=== PATIENT | male | born 1990 | race Caucasian/White ===

== ENCOUNTER 2019-08-30 11:08 | Emergency (ER) | payer OTHER ==
[~2019-08-30] VITALS: Ht 168 cm; Wt 76.0 kg
[~2019-08-30 11:08] MED LIST: HYDR-3870 PO; LEVO500T69 PO; METH4TAB PO; ONDA-42 SL; ORPH100T PO; OXYC-465 PO
[2019-08-30] MEDS ORDERED: NS IV 1000 ML 1,000 ML IV SCH (11:31)
[2019-08-30 12:00] LABS: BASOPHILS # (AUTO) 0.1 10^3/uL (0.0-0.1); BASOPHILS % (AUTO) 1 % (0-10); EOSINOPHILS # (AUTO) 0.2 10^3/uL (0.0-0.3); EOSINOPHILS % (AUTO) 3 % (0-10); HEMATOCRIT 46 % (40-54); HEMOGLOBIN 15.3 G/DL (13.3-17.7); LYMPHOCYTES # (AUTO) 1.5 X 10^3 (1.0-4.0); LYMPHOCYTES % (AUTO) 20 % (12-44); MEAN CORPUSCULAR HEMOGLOBIN 30 PG (25-34); MEAN CORPUSCULAR HGB CONC 33 G/DL (32-36); MEAN CORPUSCULAR VOLUME 91 FL (80-99); MONOCYTES % (AUTO) 13 % (0-12); NEUTROPHILS # (AUTO) 4.9 X 10^3 (1.8-7.8); NEUTROPHILS % (AUTO) 64 % (42-75); PLATELET COUNT 284 10^3/uL (130-400); RED CELL DISTRIBUTION WIDTH 13.6 % (10.0-14.5); WHITE BLOOD COUNT 7.6 10^3/uL (4.3-11.0)
[2019-08-30] MEDS ORDERED: fentaNYL INJECTION 100 MCG/2 ML AMP IVP ONE (12:00)
[2019-08-30] MEDS ORDERED: ONDANSETRON 4 MG/2 ML (SDV) Z0FRAN IVP ONE (12:00)
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
[2019-08-30 12:19] LABS: ALANINE AMINOTRANSFERASE 21 U/L (0-55); ALBUMIN 4.3 GM/DL (3.2-4.5); ALKALINE PHOSPHATASE 109 U/L (40-136); BILIRUBIN,TOTAL 0.4 MG/DL (0.1-1.0); BUN/CREATININE RATIO 7; CALCIUM 9.6 MG/DL (8.5-10.1); CARBON DIOXIDE 29 MMOL/L (21-32); CHLORIDE 102 MMOL/L (98-107); CREATININE SERUM 1.19 MG/DL (0.60-1.30); GFR ESTIMATED > 60; GLUCOSE 93 MG/DL (70-105); POTASSIUM 4.2 MMOL/L (3.6-5.0); SODIUM 140 MMOL/L (135-145); TOTAL PROTEIN 7.7 GM/DL (6.4-8.2)
[2019-08-30] MEDS ORDERED: OXCA600T3 PO (12:27)
[2019-08-30 12:29] LABS: BILIRUBIN,URINE NEGATIVE (NEGATIVE); CLARITY,URINE CLEAR; COLOR,URINE AMBER; GLUCOSE, URINE (UA) NEGATIVE (NEGATIVE); KETONES,URINE NEGATIVE (NEGATIVE); LEUKOCYTE ESTERASE ,URINE 1+ (NEGATIVE); NITRITE,URINE NEGATIVE (NEGATIVE); PH,URINE 6 (5-9); PROTEIN,URINE 1+ (NEGATIVE); UROBILINOGEN,URINE 1 MG/DL (NORMAL)
--- NOTE | 2019-08-30 12:37 | Diagnostic Imaging Report ---
PROCEDURE: CT head and CT cervical spine without contrast. TECHNIQUE: Multiple contiguous axial images were obtained through the brain and cervical spine without the use of intravenous contrast. Sagittal and coronal reformations through the cervical spine were then performed. Auto Exposure Controls were utilized during the CT exam to meet ALARA standards for radiation dose reduction. INDICATION: Seizure activity. COMPARISON: Correlation is made with prior CT from 08/31/2018. CT HEAD: The ventricles and sulci are within normal limits. No sulcal effacement or midline shift is detected. No acute intra-axial or extra-axial hemorrhage is detected. Cisterns are patent. Visualized paranasal sinuses are clear. IMPRESSION: No acute intracranial process is detected. CT CERVICAL SPINE: Alignment is normal. No fracture or subluxation is identified. The prevertebral tissues are within normal limits. The odontoid is intact. IMPRESSION: No acute bony abnormality is detected. Dictated by: Dictated on workstation # [id number]
--- NOTE | 2019-08-30 12:37 | Diagnostic Imaging Report ---
EXAMINATION: CT Chest, Abdomen and Pelvis without intravenous contrast. TECHNIQUE: Multiple contiguous axial images were obtained through the chest, abdomen and pelvis without intravenous contrast. All CT scans use one or more of the following dose optimizing techniques: automated exposure control, MA and/or KvP adjustment based on a patient size and exam type, or iterative reconstruction. HISTORY: Seizure and fall FINDINGS: Comparison is 01/01/2018 and 07/23/2018 The lungs are clear without edema or pneumonia. No pleural effusion or pneumothorax. No suspicious nodules. Heart size is normal. No pericardial effusion. Aorta is normal in caliber. There is no axillary, supraclavicular or mediastinal lymphadenopathy. The liver is normal without focal lesion. No biliary ductal dilation. Gallbladder is normal. Pancreas, spleen and adrenal glands are normal. The kidneys are normal with the exception of two tiny nonobstructing left renal stones. No hydronephrosis. Urinary bladder is normal. There are no dilated loops of large or small bowel. No obstruction or inflammation. No free fluid or air. No abdominal or pelvic lymphadenopathy. Aorta is normal in caliber without aneurysm. There are no suspicious osseus lesions. IMPRESSION: 1. No acute abnormality in the abdomen or pelvis. Dictated by: Dictated on workstation # [id number]
[2019-08-30 12:42] LABS: AMYLASE 165 U/L (25-125); LIPASE 177 U/L (8-78)
[2019-08-30 12:46] LABS: AMPHETAMINE SCREEN, URINE NEGATIVE (NEGATIVE); BARBITURATE SCREEN URINE NEGATIVE (NEGATIVE); BENZODIAZEPINES SCREEN URINE NEGATIVE (NEGATIVE); CANNABINOID SCREEN, URINE NEGATIVE (NEGATIVE); COCAINE SCREEN URINE NEGATIVE (NEGATIVE); METHADONE STAT NEGATIVE (NEGATIVE); METHAMPHETAMINE SCREEN URINE S POSITIVE (NEGATIVE); OPIATE SCREEN URINE POSITIVE (NEGATIVE); OXYCODONE STAT NEGATIVE (NEGATIVE); PROPOXYPHENE STAT NEGATIVE (NEGATIVE); TRICYCLIC ANTIDEPRESSANTS SCRE NEGATIVE (NEGATIVE)
[2019-08-30 13:02] LABS: BACTERIA,URINE TRACE /HPF; WBC,URINE 0-2 /HPF
[2019-08-30 13:03] LABS: CALCIUM OXALATE CRYSTALS,UR MODERATE /LPF; HYALINE CASTS, URINE 0-2 /LPF
[2019-08-30] MEDS ORDERED: METO-333 PO (13:34)
[2019-08-30 13:40] VITALS: BP 149/112
== END 2019-08-30 13:40 | disposition home or self-care (01) ==
LOC: EDUNIT# 11:08 → ER 11:09
DX: G40.909 Epilepsy, unspecified, not intractable, without status epilepticus (principal); I10 Essential (primary) hypertension; F43.10 Post-traumatic stress disorder, unspecified; Z87.820 Personal history of traumatic brain injury; Z88.5 Allergy status to narcotic agent; Z88.6 Allergy status to analgesic agent; Z87.442 Personal history of urinary calculi; Z91.041 Radiographic dye allergy status; Z87.891 Personal history of nicotine dependence; W17.89XA Other fall from one level to another, initial encounter
CPT/HCPCS: 36415; 70450; 71250; 72125; 74176; 80053; 80306; 81000; 82150; 83690; 85025

== ENCOUNTER 2020-08-19 12:46 | Emergency (ER) | payer OTHER ==
[~2020-08-19 12:46] MED LIST changes: +METO-333 PO; +OXCA600T3 PO; -OXYC-465 PO; +OXYC-556 PO
== END 2020-08-19 12:49 | disposition left against medical advice (07) ==
LOC: EDUNIT# 12:46 → ER 12:47
DX: R31.9 Hematuria, unspecified (principal); W19.XXXA Unspecified fall, initial encounter

== ENCOUNTER 2020-09-13 12:18 | Emergency (ER) | payer OTHER | END 2020-09-13 12:28 | disposition left against medical advice (07) | LOC: ER FS 12:19 | DX: R10.9 Unspecified abdominal pain (principal) ==

== ENCOUNTER 2022-08-21 15:43 | Emergency (ER) | payer OTHER ==
[~2022-08-21] VITALS: Ht 167.7 cm; Wt 75.0 kg
--- NOTE | 2022-08-21 16:13 | ED Abdominal Pain ---
General Chief Complaint: Abdominal/GI Problems Stated Complaint: BLOOD IN URINE,R SIDE BACK PAIN Nursing Triage Note: PT AMB TO RM 4 WITH C/O LOW R BACK PAIN THAT RADIATES TO GENITAL AREA X2 DAYS. PT HAS HX OF KIDNEY STONES Source of Information: Patient Exam Limitations: No Limitations History of Present Illness Date Seen by Provider: Aug 21, 2022 Time Seen by Provider: 16:13 Initial Comments This is a 32 yo male who presented to the ER via POV with c/o right flank and right lower abdominal pain that radiates into genital region. Has history of kidney stones, feels just like prior stone. Also noted blood in urine. No fever, chills, cough, nausea, vomiting, diarrhea. Allergies and Home Medications Allergies Coded Allergies: tramadol (Unverified Allergy, Unknown, 10/28/14) Pt states it increases his seizures Uncoded Allergies: CONTRAST DYE (Allergy, Severe, 08/30/19) Patient Home Medication List Home Medication List Reviewed: Yes Metoprolol Tartrate (Metoprolol Tartrate) 25 Mg Tablet, 25 MG PO DAILY Prescribed by: JOSLYN SCOTT on 08/30/19 1334 Oxcarbazepine (Trileptal) 600 Mg Tablet, 600 MG PO BID, (Reported) Entered as Reported by: SHREYA HARMON on 08/30/19 1227 Oxycodone HCl/Acetaminophen (Oxycodone-Acetaminophen 10-325) 1 Each Tablet, 1 EA CH PO TID PRN for PAIN, (Reported) Entered as Reported by: DIMAS ALEXANDER on 11/04/16 1646 Review of Systems Review of Systems Constitutional: see HPI Past Akiivsw-Lhvhtb-Vcsyxe Hx Patient Social History Tobacco Use?: No Use of E-Cig and/or Vaping dev: Yes E-Cig or Vaping type used: Nicotine Substance use?: No Alcohol Use?: Yes Alcohol Frequency: Rarely Pt feels they are or have been: No Immunizations Up To Date Tetanus Booster (TDap): More than 5yrs Influenza Vaccine Up-to-Date: Yes; Up-to-Date First/Initial COVID19 Vaccinat: 2020 Second COVID19 Vaccination Alexis: 2020 Seasonal Allergies Seasonal Allergies: No Past Medical History Surgery/Hospitalization HX: TBI, SEIZURES, HTN Surgeries: Yes (BILAT J STENT PLACEMENT, LITHOTRISY, FEMUR RODS) Respiratory: No Cardiac: No Neurological: No Seizure Disorder, Traumatic Brain Injury Reproductive Disorders: No Sexually Transmitted Disease: No HIV/AIDS: No Kidney Stones Gastrointestinal: No Musculoskeletal: No Endocrine: No Cancer: Yes (MULTIPLE MYELOMA) Lung Psychosocial: Yes PTSD Integumentary: No Blood Disorders: No Adverse Reaction/Blood Tranf: No Family Medical History Patient reports no known family medical history. Physical Exam Vital Signs Vital Signs - First Documented 08/21/22 08/21/22 15:52 18:18 Temp 37.1 Pulse 101 Resp 14 B/P (MAP) 168/109 (128) Pulse Ox 98 O2 Delivery Room Air Capillary Refill : Height/Weight/BMI Height: 5'6" Weight: 175lbs. oz. 79.615824qn; 26.00 BMI Method:Stated General Appearance: WD/WN, no apparent distress HEENT: PERRL/EOMI, normal ENT inspection Neck: full range of motion, supple, normal inspection Respiratory: lungs clear, normal breath sounds, no respiratory distress, no accessory muscle use Cardiovascular: regular rate, rhythm, no murmur Gastrointestinal: normal bowel sounds, soft; No rebound; tenderness (right lower ) Extremities: normal range of motion, non-tender, normal inspection Back: CVA tenderness (R) Neurologic/Psychiatric: no motor/sensory deficits, alert, normal mood/affect, oriented x 3 Skin: normal color, warm/dry Progress/Results/Core Measures Results/Orders Lab Results Laboratory Tests Test 08/21/22 15:55 08/21/22 16:10 Range/Units White Blood Count 8.3 4.3-11.0 10^3/uL Red Blood Count 4.78 4.30-5.52 10^6/uL Hemoglobin 16.3 13.3-17.7 g/dL Hematocrit 47 40-54 % Mean Corpuscular Volume 98 80-99 fL Mean Corpuscular Hemoglobin 34 25-34 pg Mean Corpuscular Hemoglobin Concent 35 32-36 g/dL Red Cell Distribution Width 12.3 10.0-14.5 % Platelet Count 261 130-400 10^3/uL Mean Platelet Volume 10.4 9.0-12.2 fL Sodium Level 139 135-145 MMOL/L Potassium Level 3.8 3.6-5.0 MMOL/L Chloride Level 103 98-107 MMOL/L Carbon Dioxide Level 26 21-32 MMOL/L Anion Gap 10 5-14 MMOL/L Blood Urea Nitrogen 15 7-18 MG/DL Creatinine 1.15 0.60-1.30 MG/DL Estimat Glomerular Filtration Rate 87 BUN/Creatinine Ratio 13 Glucose Level 119 H 70-105 MG/DL Calcium Level 9.7 8.5-10.1 MG/DL Urine Color YELLOW Urine Clarity CLEAR Urine pH 6.0 5-9 Urine Specific [place] >=1.030 1.016-1.022 Urine Protein TRACE H NEGATIVE Urine Glucose (UA) NEGATIVE NEGATIVE Urine Ketones NEGATIVE NEGATIVE Urine Nitrite NEGATIVE NEGATIVE Urine Bilirubin NEGATIVE NEGATIVE Urine Urobilinogen 1.0 < = 1.0 MG/DL Urine Leukocyte Esterase NEGATIVE NEGATIVE Urine RBC (Auto) TRACE-I H NEGATIVE Urine RBC RARE /HPF Urine WBC 0-2 /HPF Urine Squamous Epithelial Cells RARE /HPF Urine Crystals NONE /LPF Urine Bacteria TRACE /HPF Urine Casts NONE /LPF Urine Mucus SMALL H /LPF Urine Culture Indicated NO My Orders Orders - ALBA BANEGAS EQUITY TRADER Ua Culture If Indicated (08/21/22 15:46) Ct Abd/Pelvis Wo(Kidney Stone) (08/21/22 16:00) Abdomen/Kub 1view (08/21/22 16:00) Ed Iv/Invasive Line Start (08/21/22 16:00) Cbc No Diff (08/21/22 16:00) Basic Metabolic Panel (08/21/22 16:00) Fentanyl Inj (Sublimaze Injection) (08/21/22 16:15) Ondansetron Injection (Zofran Injectio (08/21/22 16:30) Ketorolac Injection (Toradol Injection) (08/21/22 16:45) Ns Iv 1000 Ml (Sodium Chloride 0.9%) (08/21/22 16:45) Fentanyl Inj (Sublimaze Injection) (08/21/22 17:30) Rx-Hydrocodone/Apap 5-325 Mg (Rx-Vicodin (08/21/22 17:30) 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 [place], [place] NAME: [facility] REC#: [id number] PT STATUS: REG ER : 1990 PHYSICIAN: ALBA BANEGAS APRN ADMIT DATE: 08/21/22/ER Signed Date of Exam:08/21/22 ABDOMEN/KUB 1VIEW EXAMINATION: Abdominal radiographs, single view. DATE: August 21, 2022. CLINICAL INDICATION: 32-year-old male, low back pain extending into the testicular region. COMPARISON: CT chest, abdomen and pelvis August 30, 2019. COMMENTS: There is no radiographically apparent calcification overlying the expected positions of the kidneys or ureters. There is incompletely imaged hardware in the femurs, bilaterally. There are no abnormally distended gas-filled segments of bowel. IMPRESSION: No identified acute abdominal radiographic abnormality. Dictated by: Dictated on workstation # [id number] Dict: 08/21/22 1645 Trans: 08/21/221657 [facility] [id number] Interpreted by: CHYNA ROJAS MD Electronically signed by: CHYNA ROJAS MD 08/21/221657 Comments [facility] [place] [place] NAME: HEAVENLY ANTONY [facility] REC#: [id number] PT STATUS: REG ER : 1990 PHYSICIAN: ALBA BANEGAS APRN ADMIT DATE: 08/21/22/ER Signed Date of Exam:08/21/22 CT ABD/PELVIS WO(KIDNEY STONE) EXAMINATION: CT abdomen and pelvis without contrast. TECHNIQUE: Multiple contiguous axial images were obtained through the abdomen and pelvis without the use of intravenous contrast. All CT scans use one or more of the following dose optimizing techniques: automated exposure control, MA and/or KvP adjustment based on patient size and exam type or iterative reconstruction. HISTORY: Flank pain, kidney stone suspected COMPARISON: 08/30/2019. FINDINGS: Lung bases: The lung bases are clear. Solid organs: The liver is normal. The gallbladder is normal. There is no biliary ductal dilation. Pancreas is normal. Spleen is normal. Adrenal glands are normal. Punctate right renal calculi without hydronephrosis. Bowel: The stomach and small bowel are normal without obstruction. The colon and appendix are normal. Peritoneum: There is no intraperitoneal free fluid or free air. No suspicious lymphadenopathy. Vasculature: Normal without aneurysm. Musculoskeletal: No suspicious osseous lesion or compression fracture. Pelvis: The prostate gland is normal. The urinary bladder is decompressed which limits evaluation. IMPRESSION: 1. No acute abnormality in the abdomen or pelvis. 2. Punctate nonobstructing right renal calculi without hydronephrosis. Dictated by: Dictated on workstation # [id number] Dict: 08/21/228 Trans: 08/21/221655 [id number] Interpreted by: KIMBER LUEVANO DO Electronically signed by: KIMBER LUEVANO DO 08/21/221655 Departure Impression Primary Impression: Kidney stone on right side Disposition: 01 HOME, SELF-CARE Condition: Improved Departure-Patient Inst. Decision time for Depature: 17:11 Referrals: NO,LOCAL PHYSICIAN (PCP/Family) Primary Care Physician Patient Instructions: Kidney Stone, Adult ED Add. Discharge Instructions: Plan: 1. Continue to drink plenty of fluids. 2. May take Tylenol or ibuprofen as needed for pain per package. 3. Follow-up with urology if your symptoms persist, or local urologist is Dr. Abarca. 4. Return for any new, concerning, worsening symptoms. All discharge instructions reviewed with patient and/or family. Voiced understanding. ALBA BANEGAS EQUITY TRADER Aug 21, 2022 16:13
[2022-08-21] MEDS ORDERED: fentaNYL INJ 100 MCG/2 ML AMP IVP ONE ×2 (16:15→17:30)
[2022-08-21 16:26] LABS: BILIRUBIN,URINE NEGATIVE (NEGATIVE); CLARITY,URINE CLEAR; COLOR,URINE YELLOW; GLUCOSE, URINE (UA) NEGATIVE (NEGATIVE); KETONES,URINE NEGATIVE (NEGATIVE); LEUKOCYTE ESTERASE ,URINE NEGATIVE (NEGATIVE); NITRITE,URINE NEGATIVE (NEGATIVE); PROTEIN,URINE TRACE (NEGATIVE)
[2022-08-21 16:28] LABS: POTASSIUM 3.8 MMOL/L (3.6-5.0)
[2022-08-21 16:29] LABS: CALCIUM 9.7 MG/DL (8.5-10.1)
[2022-08-21] MEDS ORDERED: ONDANSETRON 4 MG/2 ML (SDV) Z0FRAN IVP ONE (16:30)
[2022-08-21 16:31] LABS: HEMATOCRIT 47 % (40-54); HEMOGLOBIN 16.3 g/dL (13.3-17.7); MEAN CORPUSCULAR HEMOGLOBIN 34 pg (25-34); MEAN CORPUSCULAR HGB CONC 35 g/dL (32-36); MEAN CORPUSCULAR VOLUME 98 fL (80-99); MEAN PLATELET VOLUME 10.4 fL (9.0-12.2); PLATELET COUNT 261 10^3/uL (130-400); WHITE BLOOD COUNT 8.3 10^3/uL (4.3-11.0)
[2022-08-21 16:34] LABS: CREATININE SERUM 1.15 MG/DL (0.60-1.30)
[2022-08-21 16:39] LABS: BACTERIA,URINE TRACE /HPF; RBC,URINE RARE /HPF; SQUAMOUS EPITHELIAL CELL,UR RARE /HPF; WBC,URINE 0-2 /HPF
[2022-08-21] MEDS ORDERED: NS IV 1000 ML 1,000 ML IV ONE (16:45)
[2022-08-21] MEDS ORDERED: KETOROLAC 30 MG/ML VIAL IVP ONE (16:45)
--- NOTE | 2022-08-21 16:55 | Diagnostic Imaging Report ---
EXAMINATION: CT abdomen and pelvis without contrast. TECHNIQUE: Multiple contiguous axial images were obtained through the abdomen and pelvis without the use of intravenous contrast. All CT scans use one or more of the following dose optimizing techniques: automated exposure control, MA and/or KvP adjustment based on patient size and exam type or iterative reconstruction. HISTORY: Flank pain, kidney stone suspected COMPARISON: 08/30/2019. FINDINGS: Lung bases: The lung bases are clear. Solid organs: The liver is normal. The gallbladder is normal. There is no biliary ductal dilation. Pancreas is normal. Spleen is normal. Adrenal glands are normal. Punctate right renal calculi without hydronephrosis. Bowel: The stomach and small bowel are normal without obstruction. The colon and appendix are normal. Peritoneum: There is no intraperitoneal free fluid or free air. No suspicious lymphadenopathy. Vasculature: Normal without aneurysm. Musculoskeletal: No suspicious osseous lesion or compression fracture. Pelvis: The prostate gland is normal. The urinary bladder is decompressed which limits evaluation. IMPRESSION: 1. No acute abnormality in the abdomen or pelvis. 2. Punctate nonobstructing right renal calculi without hydronephrosis. Dictated by: Dictated on workstation # [id number]
--- NOTE | 2022-08-21 16:56 | Diagnostic Imaging Report ---
EXAMINATION: Abdominal radiographs, single view. DATE: August 21, 2022. CLINICAL INDICATION: 32-year-old male, low back pain extending into the testicular region. COMPARISON: CT chest, abdomen and pelvis August 30, 2019. COMMENTS: There is no radiographically apparent calcification overlying the expected positions of the kidneys or ureters. There is incompletely imaged hardware in the femurs, bilaterally. There are no abnormally distended gas-filled segments of bowel. IMPRESSION: No identified acute abdominal radiographic abnormality. Dictated by: Dictated on workstation # [id number]
[2022-08-21 18:18] VITALS: BP 124/81
== END 2022-08-21 18:18 | disposition home or self-care (01) ==
LOC: EDUNIT# 15:43 → ER 15:45
DX: N20.0 Calculus of kidney (principal); F17.290 Nicotine dependence, other tobacco product, uncomplicated; Z98.890 Other specified postprocedural states; Z96.0 Presence of urogenital implants
CPT/HCPCS: 36415; 74018; 74176; 80048; 81000; 85027; 96361; 96374; 96375; 96376

== ENCOUNTER 2022-12-25 00:45 | Emergency (ER) | payer MEDICAID, OTHER ==
[~2022-12-25] VITALS: Ht 168 cm; Wt 84.0 kg
--- NOTE | 2022-12-25 01:01 | ED GI ---
General Chief Complaint: Abdominal/GI Problems Stated Complaint: LEFT SIDE PAIN,POSSIBLE KIDNEY STONE Source of Information: Patient Exam Limitations: No Limitations History of Present Illness Date Seen by Provider: Dec 25, 2022 Time Seen by Provider: 00:50 Initial Comments 32-year-old male presents to the emergency department today for left flank pain. Symptoms present for a couple of days he states the pain is getting worse and not better does have a history of kidney stones with similar types of pain. Did have hematuria with his last urination. No dysuria. Tells me he had lithotr ipsy and a stent placed in his last kidney stone. He had previously seen Dr. Zaragoza. No fevers chills nausea vomiting. No changes in bowels. Pain is in his left flank into his left groin described as sharp stabbing without radiation. It is constant with no aggravating or alleviating factors. Allergies and Home Medications Allergies Coded Allergies: tramadol (Unverified Allergy, Unknown, 10/28/14) Pt states it increases his seizures Uncoded Allergies: CONTRAST DYE (Allergy, Severe, 08/30/19) Patient Home Medication List Home Medication List Reviewed: Yes Metoprolol Tartrate (Metoprolol Tartrate) 25 Mg Tablet, 25 MG PO DAILY Prescribed by: JOSLYN SCOTT on 08/30/19 1334 Oxcarbazepine (Trileptal) 600 Mg Tablet, 600 MG PO BID, (Reported) Entered as Reported by: SHREYA HARMON on 08/30/19 1227 Oxycodone HCl/Acetaminophen (Oxycodone-Acetaminophen 10-325) 1 Each Tablet, 1 EACH PO TID PRN for PAIN, (Reported) Entered as Reported by: DIMAS ALEXANDER on 11/04/16 1646 Review of Systems Review of Systems Constitutional: no symptoms reported EENTM: No Symptoms Reported Respiratory: No Symptoms Reported Cardiovascular: No Symptoms Reported Gastrointestinal: Abdominal Pain Genitourinary: Flank Pain, Hematuria Musculoskeletal: no symptoms reported Skin: no symptoms reported Psychiatric/Neurological: No Symptoms Reported Endocrine: No Symptoms Reported Hematologic/Lymphatic: No Symptoms Reported Past Eyadmbl-Pbzjuo-Hhycsa Hx Immunizations Up To Date Tetanus Booster (TDap): More than 5yrs First/Initial COVID19 Vaccinat: 2020 Second COVID19 Vaccination Alexis: 2020 Seasonal Allergies Seasonal Allergies: No Past Medical History Surgery/Hospitalization HX: TBI, SEIZURES, HTN Surgeries: Yes (BILAT J STENT PLACEMENT, LITHOTRISY, FEMUR RODS) Respiratory: No Cardiac: No Neurological: No Seizure Disorder, Traumatic Brain Injury Reproductive Disorders: No Sexually Transmitted Disease: No HIV/AIDS: No Kidney Stones Gastrointestinal: No Musculoskeletal: No Endocrine: No Cancer: Yes (MULTIPLE MYELOMA) Lung Psychosocial: Yes PTSD Integumentary: No Blood Disorders: No Adverse Reaction/Blood Tranf: No Family Medical History Reviewed Nursing Family Hx Patient reports no known family medical history. No Pertinent Family Hx Physical Exam Vital Signs Vital Signs - First Documented 12/25/22 00:56 Temp 36.8 Pulse 101 Resp 16 B/P (MAP) 171/114 (133) Pulse Ox 97 O2 Delivery Room Air Capillary Refill : Height/Weight/BMI Height: 5'6" Weight: 175lbs. oz. 79.543812wm; 26.00 BMI Method:Stated General Appearance: WD/WN, no apparent distress HEENT: normal ENT inspection, pharynx normal Neck: non-tender, full range of motion, supple, normal inspection Respiratory: chest non-tender, lungs clear, normal breath sounds, no respiratory distress, no accessory muscle use Cardiovascular: regular rate, rhythm, no murmur Gastrointestinal: normal bowel sounds, non tender, soft, no organomegaly Extremities: normal range of motion, non-tender, normal inspection Back: CVA tenderness (L) Neurologic/Psychiatric: alert, normal mood/affect, oriented x 3 Skin: normal color, warm/dry Progress/Results/Core Measures Results/Orders Lab Results Laboratory Tests Test 12/25/22 00:55 12/25/22 01:18 Range/Units Urine Color YELLOW Urine Clarity CLEAR Urine pH 6.0 5-9 Urine Specific [place] >=1.030 1.016-1.022 Urine Protein NEGATIVE NEGATIVE Urine Glucose (UA) NEGATIVE NEGATIVE Urine Ketones NEGATIVE NEGATIVE Urine Nitrite NEGATIVE NEGATIVE Urine Bilirubin NEGATIVE NEGATIVE Urine Urobilinogen 0.2 < = 1.0 MG/DL Urine Leukocyte Esterase NEGATIVE NEGATIVE Urine RBC (Auto) TRACE-I H NEGATIVE Urine RBC RARE /HPF Urine WBC RARE /HPF Urine Crystals NONE /LPF Urine Calcium Oxalate Crystals RARE H /LPF Urine Bacteria NEGATIVE /HPF Urine Casts NONE /LPF Urine Mucus NEGATIVE /LPF Urine Culture Indicated NO White Blood Count 6.9 4.3-11.0 10^3/uL Red Blood Count 4.33 4.30-5.52 10^6/uL Hemoglobin 14.8 13.3-17.7 g/dL Hematocrit 41 40-54 % Mean Corpuscular Volume 96 80-99 fL Mean Corpuscular Hemoglobin 34 25-34 pg Mean Corpuscular Hemoglobin Concent 36 32-36 g/dL Red Cell Distribution Width 11.7 10.0-14.5 % Platelet Count 227 130-400 10^3/uL Mean Platelet Volume 10.3 9.0-12.2 fL Immature Granulocyte % (Auto) 0 % Neutrophils (%) (Auto) 58 42-75 % Lymphocytes (%) (Auto) 27 12-44 % Monocytes (%) (Auto) 11 0-12 % Eosinophils (%) (Auto) 3 0-10 % Basophils (%) (Auto) 1 0-10 % Neutrophils # (Auto) 4.0 1.8-7.8 10^3/uL Lymphocytes # (Auto) 1.9 1.0-4.0 10^3/uL Monocytes # (Auto) 0.7 0.0-1.0 10^3/uL Eosinophils # (Auto) 0.2 0.0-0.3 10^3/uL Basophils # (Auto) 0.1 0.0-0.1 10^3/uL Immature Granulocyte # (Auto) 0.0 0.0-0.1 10^3/uL Sodium Level 140 135-145 MMOL/L Potassium Level 3.1 L 3.6-5.0 MMOL/L Chloride Level 101 98-107 MMOL/L Carbon Dioxide Level 22 21-32 MMOL/L Anion Gap 17 H 5-14 MMOL/L Blood Urea Nitrogen 15 7-18 MG/DL Creatinine 1.18 0.60-1.30 MG/DL Estimat Glomerular Filtration Rate 84 BUN/Creatinine Ratio 13 Glucose Level 128 H 70-105 MG/DL Calcium Level 9.1 8.5-10.1 MG/DL My Orders Orders - ARNOLD BUSTILLOS DO Basic Metabolic Panel (12/25/22 01:00) Ua Culture If Indicated (12/25/22 01:00) Ct Abd/Pelvis Wo(Kidney Stone) (12/25/22 01:00) Cbc With Automated Diff (12/25/22 01:00) Ketorolac Injection (Toradol Injection) (12/25/22 01:15) Medications Given in ED Current Medications Medications Dose Ordered Sig/Luis Route Start Time Stop Time Status Last Admin Dose Admin Ketorolac Tromethamine 30 mg ONCE ONCE IVP 12/25/22 01:15 12/25/22 01:16 DC 12/25/22 01:19 30 MG Vital Signs/I&O 12/25/22 00:56 Temp 36.8 Pulse 101 Resp 16 B/P (MAP) 171/114 (133) Pulse Ox 97 O2 Delivery Room Air Departure Communication (Admissions) Patient is hemodynamically stable. CT scan obtained, labs drawn. His renal function is normal. Urinalysis shows no evidence for infection. Only very trace blood. CT scan shows no evidence for ureterolithiasis. No other acute intra-abdominal pathology that would explain his pain at this time. It is likely this is musculoskeletal. He did get some relief with Toradol but he still does have some pain. Discharged home with recommendations for ibuprofen and Tylenol. Impression Primary Impression: Left flank pain Disposition: HOME, SELF-CARE Condition: Stable Departure-Patient Inst. Referrals: NO,LOCAL PHYSICIAN (PCP/Family) Primary Care Physician Patient Instructions: Flank Pain Add. Discharge Instructions: I do not see an obvious kidney stone on your CT scan. Continue to use ibuprofen and Tylenol as needed at home. Increase your fluids at home and rest. Follow- up with primary doctor should your symptoms persist. Return to the emergency department for any severe concerns. All discharge instructions reviewed with patient and/or family. Voiced u nderstanding. ARNOLD BUSTILLOS DO Dec 25, 2022 01:01
[2022-12-25 01:07] LABS: BILIRUBIN,URINE NEGATIVE (NEGATIVE); CLARITY,URINE CLEAR; COLOR,URINE YELLOW; GLUCOSE, URINE (UA) NEGATIVE (NEGATIVE); KETONES,URINE NEGATIVE (NEGATIVE); LEUKOCYTE ESTERASE ,URINE NEGATIVE (NEGATIVE); NITRITE,URINE NEGATIVE (NEGATIVE); PROTEIN,URINE NEGATIVE (NEGATIVE)
[2022-12-25] MEDS ORDERED: KETOROLAC 30 MG/ML VIAL IVP ONE (01:15)
[2022-12-25 01:31] LABS: BASOPHILS # (AUTO) 0.1 10^3/uL (0.0-0.1); BASOPHILS % (AUTO) 1 % (0-10); EOSINOPHILS # (AUTO) 0.2 10^3/uL (0.0-0.3); EOSINOPHILS % (AUTO) 3 % (0-10); HEMATOCRIT 41 % (40-54); HEMOGLOBIN 14.8 g/dL (13.3-17.7); LYMPHOCYTES # (AUTO) 1.9 10^3/uL (1.0-4.0); LYMPHOCYTES % (AUTO) 27 % (12-44); MEAN CORPUSCULAR HEMOGLOBIN 34 pg (25-34); MEAN CORPUSCULAR HGB CONC 36 g/dL (32-36); MEAN CORPUSCULAR VOLUME 96 fL (80-99); MEAN PLATELET VOLUME 10.3 fL (9.0-12.2); MONOCYTES # (AUTO) 0.7 10^3/uL (0.0-1.0); MONOCYTES % (AUTO) 11 % (0-12); NEUTROPHILS % (AUTO) 58 % (42-75); PLATELET COUNT 227 10^3/uL (130-400); WHITE BLOOD COUNT 6.9 10^3/uL (4.3-11.0)
[2022-12-25 01:42] LABS: BACTERIA,URINE NEGATIVE /HPF; CALCIUM OXALATE CRYSTALS,UR RARE /LPF; RBC,URINE RARE /HPF; WBC,URINE RARE /HPF
[2022-12-25 01:47] LABS: POTASSIUM 3.1 MMOL/L (3.6-5.0)
[2022-12-25 01:48] LABS: CALCIUM 9.1 MG/DL (8.5-10.1)
[2022-12-25 01:52] LABS: CREATININE SERUM 1.18 MG/DL (0.60-1.30)
[2022-12-25 02:24] VITALS: BP 162/109
--- NOTE | 2022-12-25 06:25 | Diagnostic Imaging Report ---
PROCEDURE: CT urinary tract, rule out kidney stone. TECHNIQUE: Multiple contiguous axial images were obtained through the abdomen and pelvis without the use of intravenous contrast. Auto Exposure Controls were utilized during the CT exam to meet ALARA standards for radiation dose reduction. INDICATION: Flank pain. FINDINGS: Heart size is normal. The lung bases are clear. The liver is normal in size without focal lesions. Gallbladder is unremarkable. There is no biliary ductal dilatation. Spleen is normal. Pancreas and adrenal glands are unremarkable. There is a tiny nonobstructing right renal calculus. There is no evidence of obstructive uropathy. Aorta is nonaneurysmal. The bowel gas pattern is nonspecific. There is no free air. There is no ascites. There are no focal inflammatory changes. Bladder is normal. There is no pelvic mass, adenopathy or free fluid. The osseous structures are unremarkable. IMPRESSION: 3 mm nonobstructing right renal calculus. Normal appendix. Otherwise unremarkable CT abdomen and pelvis. Dictated by: Dictated on workstation # [id number]
== END 2022-12-25 02:24 | disposition home or self-care (01) ==
LOC: EDUNIT# 00:45 → ER 00:49
DX: R10.32 Left lower quadrant pain (principal); Z87.442 Personal history of urinary calculi
CPT/HCPCS: 36415; 74176; 80048; 81000; 85025

== ENCOUNTER 2023-06-19 19:44 | Emergency (ER) | payer MEDICAID ==
[~2023-06-19] VITALS: Ht 170 cm; Wt 79.4 kg
[2023-06-19] MEDS ORDERED: NS IV 1000 ML 1,000 ML IV STA (19:56)
--- NOTE | 2023-06-19 20:03 | ED General ---
General Chief Complaint: Neurological Problems Stated Complaint: ABD/FLANK PAIN Source of Information: Patient Exam Limitations: No Limitations (KEO SCHULER) History of Present Illness Date Seen by Provider: Jun 19, 2023 Time Seen by Provider: 19:58 Initial Comments Patient is a 33-year-old male who presents to the ED after evaluation for a fall. Patient states 2 to 3 hours ago he fell on the roof. He is unsure how high the roof was but believes it was about 10 feet. This was witnessed by his friend. Patient states he had potentially 3 seizures today. Seizures lasting 2 to 3 minutes. History of seizures. Patient states he has been on Trileptal 600 mg twice daily but has not taken the medication for the past 2 months. Patient was at [facility] at the time. Patient Was complaining of right-sided abdominal pain according to EMS and some mild shortness of breath. Denied of any chest pain. History of kidney stones. He told EMS that he was having abdominal pain for 2 weeks. Patient is complaining of no headache, dizziness, visual changes. On palpation he was complaining of cervical neck pain and head pain without evidence of contusion or swelling. Patient was placed in c-collar. Denies any alcohol use or drug use. Patient requesting something for pain. Patient is supposedly homeless. Patient denies any pelvic pain, lower extremity pain, upper extremity pain, visual changes. Last seizure 2 months ago. Patient denies nausea, vomiting, diarrhea, distal numbness and tingling (KEO SCHULER) Allergies and Home Medications Allergies Coded Allergies: tramadol (Unverified Allergy, Unknown, 10/28/14) Pt states it increases his seizures Uncoded Allergies: CONTRAST DYE (Allergy, Severe, 08/30/19) Patient Home Medication List Home Medication List Reviewed: Yes (KEO SCHULER) Metoprolol Tartrate (Metoprolol Tartrate) 25 Mg Tablet, 25 MG PO DAILY Prescribed by: JOSLYN SCOTT on 08/30/19 1334 Oxcarbazepine (Trileptal) 600 Mg Tablet, 600 MG PO BID, (Reported) Entered as Reported by: SHREYA HARMON on 08/30/19 1227 Oxcarbazepine (Trileptal) 600 Mg Tablet, 600 MG PO BID Prescribed by: JUAN SCOTT on 06/19/232100 Oxycodone HCl/Acetaminophen (Oxycodone-Acetaminophen 10-325) 1 Each Tablet, 1 EACH PO TID PRN for PAIN, (Reported) Entered as Reported by: DIMAS ALEXANDER on 11/04/16 1646 Review of Systems Review of Systems Constitutional: No chills, No diaphoresis, No malaise, No weakness EENTM: No hearing loss, No blurred vision, No double vision Respiratory: No cough, No dyspnea on exertion Cardiovascular: No chest pain Gastrointestinal: abdominal pain Genitourinary: No decreased output, No discharge Musculoskeletal: back pain, joint pain, joint swelling, muscle pain Skin: No change in color, No change in hair/nails (KEO SCHULER) All Other Systems Reviewed Negative Unless Noted: Yes (KEO SCHULER) Past Gbiepkr-Vndymh-Ssdxli Hx Immunizations Up To Date Tetanus Booster (TDap): More than 5yrs First/Initial COVID19 Vaccinat: 2020 Second COVID19 Vaccination Alexis: 2020 Third COVID19 Vaccination Date: 2020 (KEO SCHULER) Seasonal Allergies Seasonal Allergies: No (KEO SCHULER) Past Medical History Surgery/Hospitalization HX: TBI, SEIZURES, HTN Surgeries: Yes (BILAT J STENT PLACEMENT, LITHOTRISY, FEMUR RODS) Respiratory: No Cardiac: No Neurological: No Seizure Disorder, Traumatic Brain Injury Reproductive Disorders: No Sexually Transmitted Disease: No HIV/AIDS: No Kidney Stones Gastrointestinal: No Musculoskeletal: No Endocrine: No Cancer: Yes (MULTIPLE MYELOMA) Lung Psychosocial: Yes PTSD Integumentary: No Blood Disorders: No Adverse Reaction/Blood Tranf: No (KEO SCHULER) Family Medical History Patient reports no known family medical history. No Pertinent Family Hx (KEO SCHULER) Physical Exam Vital Signs Vital Signs - First Documented 06/19/23 19:47 Temp 37.2 Pulse 94 Resp 20 B/P (MAP) 126/85 (99) Pulse Ox 94 O2 Delivery Room Air (RADHA,GRETA K DO) Vital Signs Capillary Refill : (KEO SCHULER) Height, Weight, BMI Height: 5'6" Weight: 175lbs. oz. 79.576186xf; 29.00 BMI Method:Stated General Appearance: No Apparent Distress, WD/WN Eyes: Bilateral Eye Normal Inspection, Bilateral Eye PERRL, Bilateral Eye EOMI HEENT: PERRL/EOMI, TMs Normal, Normal ENT Inspection, Pharynx Normal Neck: Full Range of Motion, Normal Inspection, Other (Bilateral cervical paraspinal muscle tenderness. Cervical midline tenderness. No swelling, bruising. placed in c-collar) Respiratory: Chest Non Tender, Lungs Clear, Normal Breath Sounds, No Accessory Muscle Use, No Respiratory Distress Cardiovascular: Regular Rate, Rhythm, No Edema, No Gallop, No JVD, No Murmur Gastrointestinal: Other (Right-sided cervical paraspinal muscle tenderness. Thoracic midline tenderness. No lumbar midline tenderness. No bruising swelling) Extremity: Normal Capillary Refill, Normal Inspection, Normal Range of Motion, Non Tender Neurologic/Psychiatric: Alert, Oriented x3, No Motor/Sensory Deficits, Normal Mood/Affect, president [place] II-XII Norm as Tested (KEO SCHULER) Progress/Results/Core Measures Suspected Sepsis SIRS Temperature: Pulse: Respiratory Rate: Laboratory Tests 06/19/23 19:58: White Blood Count 11.9H Blood Pressure / Mean: Laboratory Tests 06/19/23 19:58: Creatinine 1.20, INR Comment 0.9, Platelet Count 338, Total Bilirubin 0.2 (KEO SCHULER) Results/Orders Lab Results Laboratory Tests Test 06/19/23 19:58 06/19/23 20:36 Range/Units White Blood Count 11.9 H 4.3-11.0 10^3/uL Red Blood Count 4.80 4.30-5.52 10^6/uL Hemoglobin 16.1 13.3-17.7 g/dL Hematocrit 46 40-54 % Mean Corpuscular Volume 97 80-99 fL Mean Corpuscular Hemoglobin 34 25-34 pg Mean Corpuscular Hemoglobin Concent 35 32-36 g/dL Red Cell Distribution Width 12.3 10.0-14.5 % Platelet Count 338 130-400 10^3/uL Mean Platelet Volume 9.6 9.0-12.2 fL Immature Granulocyte % (Auto) 1 % Neutrophils (%) (Auto) 64 42-75 % Lymphocytes (%) (Auto) 24 12-44 % Monocytes (%) (Auto) 9 0-12 % Eosinophils (%) (Auto) 2 0-10 % Basophils (%) (Auto) 1 0-10 % Neutrophils # (Auto) 7.7 1.8-7.8 10^3/uL Lymphocytes # (Auto) 2.8 1.0-4.0 10^3/uL Monocytes # (Auto) 1.0 0.0-1.0 10^3/uL Eosinophils # (Auto) 0.2 0.0-0.3 10^3/uL Basophils # (Auto) 0.1 0.0-0.1 10^3/uL Immature Granulocyte # (Auto) 0.1 0.0-0.1 10^3/uL Prothrombin Time 12.3 12.2-14.7 SEC INR Comment 0.9 0.8-1.4 Activated Partial Thromboplast Time 28 24-35 SEC Sodium Level 141 135-145 MMOL/L Potassium Level 3.7 3.6-5.0 MMOL/L Chloride Level 103 98-107 MMOL/L Carbon Dioxide Level 22 21-32 MMOL/L Anion Gap 16 H 5-14 MMOL/L Blood Urea Nitrogen 19 H 7-18 MG/DL Creatinine 1.20 0.60-1.30 MG/DL Estimat Glomerular Filtration Rate 82 BUN/Creatinine Ratio 16 Glucose Level 115 H 70-105 MG/DL Calcium Level 9.9 8.5-10.1 MG/DL Corrected Calcium 9.7 8.5-10.1 MG/DL Total Bilirubin 0.2 0.1-1.0 MG/DL Aspartate Amino Transf (AST/SGOT) 27 5-34 U/L Alanine Aminotransferase (ALT/SGPT) 30 0-55 U/L Alkaline Phosphatase 92 40-136 U/L Total Protein 7.8 6.4-8.2 GM/DL Albumin 4.2 3.2-4.5 GM/DL Lipase 74 8-78 U/L Serum Alcohol 168 H <10 MG/DL Urine Color YELLOW Urine Clarity CLEAR Urine pH 6.0 5-9 Urine Specific [place] 1.020 1.016-1.022 Urine Protein NEGATIVE NEGATIVE Urine Glucose (UA) NEGATIVE NEGATIVE Urine Ketones NEGATIVE NEGATIVE Urine Nitrite NEGATIVE NEGATIVE Urine Bilirubin NEGATIVE NEGATIVE Urine Urobilinogen NEG < = 1.0 MG/DL Urine Leukocyte Esterase NEGATIVE NEGATIVE Urine RBC (Auto) NEGATIVE NEGATIVE Urine RBC NONE /HPF Urine WBC NONE /HPF Urine Squamous Epithelial Cells 0-2 /HPF Urine Crystals PRESENT H /LPF Urine Calcium Oxalate Crystals MODERATE H /LPF Urine Amorphous Sediment FEW HILLARY URATES H /LPF Urine Bacteria NEGATIVE /HPF Urine Casts PRESENT /LPF Urine Hyaline Casts 10-25 H /LPF Urine Mucus MODERATE H /LPF Urine Culture Indicated NO Urine Opiates Screen NEGATIVE NEGATIVE Urine Oxycodone Screen NEGATIVE NEGATIVE Urine Methadone Screen NEGATIVE NEGATIVE Urine Propoxyphene Screen NEGATIVE NEGATIVE Urine Barbiturates Screen NEGATIVE NEGATIVE Ur Tricyclic Antidepressants Screen NEGATIVE NEGATIVE Urine Phencyclidine Screen NEGATIVE NEGATIVE Urine Amphetamines Screen NEGATIVE NEGATIVE Urine Methamphetamines Screen NEGATIVE NEGATIVE Urine Benzodiazepines Screen POSITIVE H NEGATIVE Urine Cocaine Screen POSITIVE H NEGATIVE Urine Cannabinoids Screen NEGATIVE NEGATIVE (GRETA GARCIA DO) Medications Given in ED Current Medications Medications Dose Ordered Sig/Luis Route Start Time Stop Time Status Last Admin Dose Admin Ketorolac Tromethamine 30 mg ONCE ONCE IVP 06/19/23 20:45 06/19/23 20:46 DC 06/19/23 20:45 30 MG Oxcarbazepine 600 mg ONCE ONCE PO 06/19/23 20:15 06/19/23 20:16 DC 06/19/23 20:51 600 MG (GRETA GARCIA DO) Vital Signs/I&O 06/19/23 06/19/23 19:47 21:09 Temp 37.2 Pulse 94 87 Resp 20 16 B/P (MAP) 126/85 (99) 106/50 Pulse Ox 94 96 O2 Delivery Room Air Room Air (GRETA GARCIA DO) Vital Signs/I&O Capillary Refill : (KEO SCHULER) Departure Communication (PCP) Patient is a 33-year-old male brought to ED by EMS for multiple complaints. History of seizures. Has been out of his Trileptal 600 mg twice daily for a few months. He states he had 3 seizures today. Fell off a house while hemal. Unsure how high the rope was but believes it was around 10 feet. Denies hitting his head or loss of consciousness. Complain of right-sided abdominal pain. He told EMS he had no seizures today. He told EMS he is having right sided abdomen and right flank pain for 2 weeks with some mild shortness of breath. Patient denies any drug use or alcohol use. Patient is currently homeless. Exam patient he did have some cervical midline tenderness patient was placed in a c-collar. There is no evidence of trauma to the head but was having tenderness. Thoracic midline tenderness. No lumbar midline tenderness per right side abdominal tenderness. Lung sounds clear bilateral. No pain with deep inspiration. No hip tenderness. Patient walked into the ED. Vital signs stable. Started on a liter of fluid. Generalized lab work. CT scan of the head cervical neck, thoracic spine CT scan of the abdomen and pelvis without contrast as he is allergic to contrast. Chest x-ray was ordered. CT scan of the head and cervical neck was negative. C-collar removed and cleared at 2050. CT thoracic spine negative for acute fracture. Chest x-ray unremarkable. CT scan of the abdomen pelvis no acute abnormality. Did note constipation. Discu ssed laxatives. Did note some bladder thickening with normal urinalysis without evidence of infection. There was no evidence of trauma. Unclear if patient did fall. Moving all extremities without difficulties. No focal neural deficits. Alcohol level 168. Normal kidney function with slight elevated white blood count of 11. No vomiting. Neuro exam unremarkable. No seizure activity. Seizure precautions were performed. Did receive Trileptal 600 mg here. Patient positive for benzos and cocaine. Patient was observed here in the ED. Continue improvement without any seizure-like activity. Patient is requesting a ride back to [employer]. Provided resources. Sent Trileptal to the [facility] per his request. Discussed alcohol cessation and drug cessation. Patient has remained asymptomatic. No acute distress. (KEO SCHULER) Impression Primary Impression: Seizure Additional Impression: Abdominal pain Disposition: HOME, SELF-CARE Condition: Stable Departure-Patient Inst. Decision time for Depature: 21:00 (KEO SCHULER) Referrals: [facility] [place] NO,LOCAL PHYSICIAN (PCP) Primary Care Physician Patient Instructions: Seizures, Adult ED Add. Discharge Instructions: Recommend staying hydrated. Continue with your Trileptal. Follow-up your PCP in 2 to 3 days for reevaluation. All discharge instructions reviewed with patient and/or family. Voiced understanding. Scripts Oxcarbazepine (Trileptal) 600 Mg Tablet 600 MG PO BID, #60 TAB Prov: KEO SCHULER 06/19/23 ATTENDING PHYSICIAN NOTE: I WAS PHYSICALLY PRESENT ER PHYSICIAN, BUT I WAS NOT INVOLVED IN ANY DECISION MAKING OR ANY CARE OF THIS PATIENT AND I AM NOT COLLABORATING PHYSICIAN. (GRETA GARCIA DO) KEO SCHULER Jun 19, 2023 20:03 GRETA GARCIA DO Jun 20, 2023 02:00
[2023-06-19 20:04] LABS: BASOPHILS # (AUTO) 0.1 10^3/uL (0.0-0.1); BASOPHILS % (AUTO) 1 % (0-10); EOSINOPHILS # (AUTO) 0.2 10^3/uL (0.0-0.3); EOSINOPHILS % (AUTO) 2 % (0-10); HEMATOCRIT 46 % (40-54); HEMOGLOBIN 16.1 g/dL (13.3-17.7); LYMPHOCYTES # (AUTO) 2.8 10^3/uL (1.0-4.0); LYMPHOCYTES % (AUTO) 24 % (12-44); MEAN CORPUSCULAR HEMOGLOBIN 34 pg (25-34); MEAN CORPUSCULAR HGB CONC 35 g/dL (32-36); MEAN CORPUSCULAR VOLUME 97 fL (80-99); MEAN PLATELET VOLUME 9.6 fL (9.0-12.2); MONOCYTES % (AUTO) 9 % (0-12); NEUTROPHILS # (AUTO) 7.7 10^3/uL (1.8-7.8); NEUTROPHILS % (AUTO) 64 % (42-75); PLATELET COUNT 338 10^3/uL (130-400); WHITE BLOOD COUNT 11.9 10^3/uL (4.3-11.0)
[2023-06-19] MEDS ORDERED: OXcarbazepine (TRILEPTAL) 300 MG TAB PO ONE (20:15)
[2023-06-19 20:19] LABS: INR 0.9 (0.8-1.4); PROTHROMBIN TIME PATIENT 12.3 SEC (12.2-14.7)
[2023-06-19 20:29] LABS: ALBUMIN 4.2 GM/DL (3.2-4.5); BILIRUBIN,TOTAL 0.2 MG/DL (0.1-1.0); CALCIUM 9.9 MG/DL (8.5-10.1); CREATININE SERUM 1.2 MG/DL (0.60-1.30); POTASSIUM 3.7 MMOL/L (3.6-5.0); TOTAL PROTEIN 7.8 GM/DL (6.4-8.2)
--- NOTE | 2023-06-19 20:34 | Diagnostic Imaging Report ---
PROCEDURE: CT thoracic spine without contrast. TECHNIQUE: Multiple axial computerized tomography images were obtained from the base of the thoracic spine to the vertex without intravenous contrast. Auto Exposure Controls were utilized during the CT exam to meet ALARA standards for radiation dose reduction. INDICATION: Back pain after fall. COMPARISON: None. FINDINGS: Alignment of the thoracic spine appears normal. Vertebral body heights and disc heights are preserved. No acute fracture is seen. No bony fragment or hyperdense fluid collection is seen in the spinal canal. Surrounding soft tissues demonstrate no acute abnormality. IMPRESSION: No acute osseous abnormality is seen in the thoracic spine. Dictated by: Dictated on workstation # [id number]
--- NOTE | 2023-06-19 20:36 | Diagnostic Imaging Report ---
PROCEDURE: CT head and CT cervical spine without contrast. TECHNIQUE: Multiple contiguous axial images were obtained through the brain and cervical spine without the use of intravenous contrast. Sagittal and coronal reformations through the cervical spine were then performed. Auto Exposure Controls were utilized during the CT exam to meet ALARA standards for radiation dose reduction. INDICATION: Head and neck pain after fall. COMPARISON: 08/30/2019. FINDINGS: CT HEAD: The ventricles and cortical sulci are age-appropriate. There is no midline shift or mass effect. No acute intracranial hemorrhage is seen. There is no CT evidence of acute territorial ischemia. There is a small right mucous retention cyst. The calvarium appears intact. CT CERVICAL SPINE: There is slight reversal of the cervical lordosis centered at C3-C4, without spondylolisthesis. Vertebral body heights are preserved. There is mild degenerative change at C3-C4, C4-C5 and C5-C6. No acute fracture is seen. No bony fragment or hyperdense fluid collection is seen in the spinal canal. IMPRESSION: 1. No acute intracranial hemorrhage or calvarium fracture. 2. No acute osseous abnormality seen in the cervical spine. Dictated by: Dictated on workstation # [id number]
--- NOTE | 2023-06-19 20:42 | Diagnostic Imaging Report ---
HISTORY: Shortness of breath. COMPARISON: 07/23/2018. TECHNIQUE: Frontal view of the chest. FINDINGS: Lung volumes are low. No consolidation is seen. There is no pleural effusion or pneumothorax. The cardiac silhouette is normal in size. IMPRESSION: Mildly low lung volumes with no acute pulmonary abnormality seen. Dictated by: Dictated on workstation # [id number]
[2023-06-19] MEDS ORDERED: KETOROLAC 30 MG/ML VIAL IVP ONE (20:45)
--- NOTE | 2023-06-19 20:46 | Diagnostic Imaging Report ---
PROCEDURE: CT abdomen and pelvis without contrast. TECHNIQUE: Multiple contiguous axial images were obtained through the abdomen and pelvis without the use of intravenous contrast. Auto Exposure Controls were utilized during the CT exam to meet ALARA standards for radiation dose reduction. INDICATION: Abdominal pain after fall. COMPARISON: 12/25/2022. FINDINGS: There is dependent atelectasis in the lung bases. The heart is normal in size. The liver demonstrates no focal lesion. The spleen appears normal. The pancreas is normal. The adrenal glands appear normal. The kidneys demonstrate no hydronephrosis or calculi. There is mild wall thickening of the urinary bladder. The appendix appears normal. The bowel loops are nondistended without obstruction. There is moderate stool in the colon. The stomach is mildly distended with ingested material. No free fluid or free air is seen. There are rods in the bilateral femurs. No acute osseous abnormality is seen in the abdomen or pelvis. IMPRESSION: 1. Mild wall thickening of the urinary bladder, please correlate with urinalysis to exclude infection. 2. Moderate stool in the colon, please correlate with any history of constipation. The stomach is mildly distended with ingested material. No bowel obstruction is seen. Dictated by: Dictated on workstation # [id number]
[2023-06-19 21:00] LABS: CLARITY,URINE CLEAR; COLOR,URINE YELLOW
[2023-06-19 21:01] LABS: AMORPHOUS SEDIMENT,UR FEW AMOR URATES /LPF; BACTERIA,URINE NEGATIVE /HPF; BILIRUBIN,URINE NEGATIVE (NEGATIVE); CALCIUM OXALATE CRYSTALS,UR MODERATE /LPF; GLUCOSE, URINE (UA) NEGATIVE (NEGATIVE); KETONES,URINE NEGATIVE (NEGATIVE); LEUKOCYTE ESTERASE ,URINE NEGATIVE (NEGATIVE); NITRITE,URINE NEGATIVE (NEGATIVE); PROTEIN,URINE NEGATIVE (NEGATIVE); SQUAMOUS EPITHELIAL CELL,UR 0-2 /HPF
[2023-06-19] MEDS ORDERED: OXCA600T3 PO (21:01)
[2023-06-19 21:09] VITALS: BP 106/50
[2023-06-19 21:09] LABS: AMPHETAMINE SCREEN, URINE NEGATIVE (NEGATIVE); BARBITURATE SCREEN URINE NEGATIVE (NEGATIVE); BENZODIAZEPINES SCREEN URINE POSITIVE (NEGATIVE); CANNABINOID SCREEN, URINE NEGATIVE (NEGATIVE); COCAINE SCREEN URINE POSITIVE (NEGATIVE); METHADONE STAT NEGATIVE (NEGATIVE); OPIATE SCREEN URINE NEGATIVE (NEGATIVE); OXYCODONE STAT NEGATIVE (NEGATIVE); PROPOXYPHENE STAT NEGATIVE (NEGATIVE); TRICYCLIC ANTIDEPRESSANTS SCRE NEGATIVE (NEGATIVE)
== END 2023-06-19 21:09 | disposition home or self-care (01) ==
LOC: EDUNIT# 19:44 → ER 19:46
DX: G40.909 Epilepsy, unspecified, not intractable, without status epilepticus (principal); R10.9 Unspecified abdominal pain; M54.2 Cervicalgia; M54.6 Pain in thoracic spine; R06.02 Shortness of breath; Z88.6 Allergy status to analgesic agent; Z28.310 Unvaccinated for COVID-19; W13.2XXA Fall from, out of or through roof, initial encounter
CPT/HCPCS: 70450; 71045; 72125; 72128; 74176; 80053; 80306; 81000; 83690; 85025; 85610; 85730; 93041; 99284; G0480; 36415; 80320; 96361; 96374

== ENCOUNTER 2023-06-19 21:49 | Emergency (ER) | payer MEDICAID ==
[~2023-06-19] VITALS: Ht 167 cm; Wt 74.8 kg
--- NOTE | 2023-06-19 22:01 | ED Psychosocial ---
General Stated Complaint: SUICIDAL IDEATION Source: patient (GIVES MUCH CONVOLUTED AND INCONSISTENT INFORMATION AND CONSTANTLY CHANGING STORY), old records (GRETA GARCIA DO) History of Present Illness Date Seen by Provider: Jun 19, 2023 Time Seen by Provider: 21:54 Initial Comments PT WAS LITERALLY JUST DISMISSED FROM ER AND IS NOW IMMEDIATELY CHECKING BACK IN STATING HE IS SUICIDAL PT IS HOMELESS AND TEMP IS VERY HOT OUTSIDE AND GOT KICKED OUT OF [facility], SO HE CALLED EMS HE ARRIVED BY EMS [facility] WITH COMPLAINT OF BILATERAL FLANK PAIN- ( STORY CHANGED MULTIPLE TIMES DURING ER STAY)-PT WITH NEGATIVE WORK UP FOR ANY ACUTE PROCESS--LAB AND MULTIPLE CT SCANS WERE DONE AND PT WAS CLEARED MEDICALLY AND DISMISSED. PT WAS FOUND TO HAVE ETOH 165, AND UDS + FOR COCAINE AND BENZODIAZEPINES. HE REPEATEDLY WANTED PAIN MEDICATIONS DURING ER STAY, WHICH HE DID NOT RECEIVE. HE MADE NO SUICIDAL STATEMENTS AT ANY TIME DURING HIS ER STAY. HE DOES NOT HAVE A PLAN HE LATER CHANGES HIS STORY AND STATES HE THOUGHT ABOUT RUNNING OUT IN TRAFFIC HE STATES HE WAS HOSPITALIZED AT [facility] IN THE PAST HE CONSTANTLY CHANGING STORY ABOUT MEDICATIONS AND WHEN OR IF HE HAS TAKEN THEM. FIRST STATES HE DOES NOT TAKE ANY MEDICATION, THEN STATES HE TAKES SEIZURE MEDICATION ONLY--FIRST STATES HE HAS NOT BEEN TAKING IT, THEN STATES HE HAS BEEN TAKING IT. HE THEN ALSO STATES HE ALSO IS ON BLOOD PRESSURE MEDICATION AND DOES THE SAME--FIRST STATES HE HAS NOT BEEN TAKING IT THEN STATES HE HAS BEEN TAKING IT. HE IS NOT VOICING ANY COMPLAINTS OF ABDOMINAL PAIN OR FLANK PAIN AT THIS TIME OR ANY PHYSICAL COMPLAINTS. PT IS FROM [facility]. HE IS WANTING A RIDE BACK TO [place] AND DOES NOT HAVE ANYWHERE TO GO AND PT WAS TOLD THAT WE WOULD NOT BE ARRANGING FOR HIM TO GET A RIDE TO [place], SO DECIDED TO CHECK BACK INTO ER PT IS CLAIMING NOW THAT HE DOES NOT DRINK OR SMOKE OR USE ANY DRUGS--PT ARRIVES WITH A PACK OF CIGARETTES, AND PT HAD THE ABOVE POSITIVE LABS FOR ALCOHOL AND DRUGS PCP: NONE LATER STATES HE GOES TO [facility] IN [place]--FIRST STATES HE HAS NOT BEEN RECENTLY, THEN STATES HE WAS THERE A COUPLE OF MONTHS AGO. (GRETA GARCIA DO) Allergies and Home Medications Allergies Coded Allergies: tramadol (Unverified Allergy, Unknown, 10/28/14) Pt states it increases his seizures Uncoded Allergies: CONTRAST DYE (Allergy, Severe, 08/30/19) Patient Home Medication List Home Medication List Reviewed: Yes (GRETA GARCIA DO) Metoprolol Tartrate (Metoprolol Tartrate) 25 Mg Tablet, 25 MG PO DAILY Prescribed by: JOSLYN SCOTT on 08/30/19 1334 Oxcarbazepine (Trileptal) 600 Mg Tablet, 600 MG PO BID Prescribed by: JUAN SCOTT on 06/19/23 2101 Discontinued Medications Oxcarbazepine (Trileptal) 600 Mg Tablet, 600 MG PO BID, (Reported) Discontinued Reason: Duplicate Order Entered as Reported by: SHREYA HARMON on 08/30/19 1227 Last Action: Discontinued Oxycodone HCl/Acetaminophen (Oxycodone-Acetaminophen 10-325) 1 Each Tablet, 1 EACH PO TID PRN for PAIN, (Reported) Discontinued Reason: No Longer Taking Entered as Reported by: DIMAS ALEXANDER on 11/04/16 1646 Last Action: Discontinued Review of Systems Constitutional: no symptoms reported Respiratory: no symptoms reported Cardiovascular: no symptoms reported Gastrointestinal: no symptoms reported Genitourinary: no symptoms reported Musculoskeletal: no symptoms reported Skin: no symptoms reported Psychiatric/Neurological: See HPI (GRETA GARCIA DO) Past Jzklhei-Smfaum-Hdtjho Hx Patient Social History Tobacco Use?: Yes Tobacco type used: Cigarettes Substance use?: Yes Substance type: Methamphetamine, Misuse of prescript meds Additional substance use comme: UDS + FOR COCAINE AND BENZODIAZEPINES 06/19/23 Alcohol Use?: Yes (GRETA GARCIA DO) Immunizations Up To Date Tetanus Booster (TDap): More than 5yrs First/Initial COVID19 Vaccinat: 2020 Second COVID19 Vaccination Alexis: 2020 Third COVID19 Vaccination Date: 2020 (GRETA GARCIA DO) Seasonal Allergies Seasonal Allergies: No (GRETA GARCIA DO) Past Medical History Surgery/Hospitalization HX: TBI, SEIZURES, HTN Surgeries: Yes (BILAT J STENT PLACEMENT, LITHOTRISY, FEMUR RODS;SURGERY FOR PERF ULCER) Abdominal, Orthopedic, Renal Respiratory: No Cardiac: No Neurological: Yes (SEIZURES FROM MEDICATIONS ONLY, PER PT) Seizure Disorder, Traumatic Brain Injury Reproductive Disorders: No Sexually Transmitted Disease: No HIV/AIDS: No Genitourinary: Yes (URETERAL STENTS, LITHOTRIPSY) Kidney Stones Gastrointestinal: Yes (SURGERY FOR PERF ULCER) Ulcer Musculoskeletal: Yes (BILATERAL FEMUR FRACTURES/ORIF WITH RODS) Fractures Endocrine: No HEENT: No Cancer: Yes (MULTIPLE MYELOMA) Lung Psychosocial: Yes (POLYSUBSTANCE ABUSE) PTSD Integumentary: No Blood Disorders: No Adverse Reaction/Blood Tranf: No (GRETA GARCIA DO) Family Medical History Patient reports no known family medical history. No Pertinent Family Hx (GRETA GARCIA DO) Physical Exam Vital Signs - First Documented 06/19/23 21:59 Temp 36.0 Pulse 89 Resp 16 B/P (MAP) 93/53 (66) Pulse Ox 99 O2 Delivery Room Air (ARNOLD BUSTILLOS DO) Capillary Refill : (GRETA GARCIA DO) Height, Weight, BMI Height: 5'6" Weight: 175lbs. oz. 79.368223yi; 27.00 BMI Method:Stated General Appearance: WD/WN, no apparent distress, other (WALKS WITHOUT DIFFICULTY. GOES TO SLEEP SHORTLY AFTER ARRIVAL. EASILY AWAKENS. SPEECH IS RAPID AND SOMEWHAT MUMBLED) Neck: normal inspection Respiratory: normal breath sounds, no respiratory distress, no accessory muscle use Cardiovascular: regular rate, rhythm, no murmur Gastrointestinal: non tender, soft Extremities: normal inspection, normal capillary refill Neurologic/Psychiatric: conductor/brakeman II-XII nml as tested, no motor/sensory deficits, alert, oriented x 3 Skin: normal color, warm/dry, other (NO EXTERNAL EVIDENCE OF TRAUMA ANYWHERE) (GRETA GARCIA DO) Progress/Results/Core Measures Results/Orders Lab Results Laboratory Tests Test 06/19/23 00:16 06/19/23 22:00 06/20/23 00:16 Range/Units Serum Alcohol 67 H <10 MG/DL Influenza Type A (RT-PCR) Not Detected Not Detecte Influenza Type B (RT-PCR) Not Detected Not Detecte SARS-CoV-2 RNA (RT-PCR) Not Detected Not Detecte (ARNOLD BUSTILLOS DO) My Orders Orders - ARNOLD BUSTILLOS DO General/Regular (06/20/23 Breakfast) Ondansetron Oral Dissolve Tab (Zofran (06/20/23 13:04) Hydroxyzine Cap/Tab (Vistaril) (06/20/23 13:15) Thyroid Stimulating Hormone (06/20/23 13:11) (ARNOLD BUSTILLOS DO) Medications Given in ED Current Medications Medications Dose Ordered Sig/Luis Route Start Time Stop Time Status Last Admin Dose Admin Hydroxyzine Pamoate 50 mg ONCE ONCE PO 06/20/23 13:15 06/20/23 13:16 DC 06/20/23 13:15 50 MG (ARNOLD BUSTILLOS DO) Vital Signs/I&O 06/20/23 07:01 Pulse 62 Resp 18 B/P (MAP) 134/65 (88) Pulse Ox 96 O2 Delivery Room Air (ARNOLD BUSTILLOS DO) Progress Progress Note : Progress Note PLACED IN SECURE ROOM PT GOWNED AND BELONGINGS REMOVED FROM THE ROOM. SUICIDE RISK STRATIFICATION FORM COMPLETED. REVIEWED LAB AND CT SCANS DONE A SHORT TIME AGO ON PRIOR ER VISIT. EKG AND COVID TESTING ADDED FOR COMPLETE MENTAL HEALTH SCREEN. EKG IS NORMAL, AND COVID /FLU TESTS ARE NORMAL CBC, CMP ARE NORMAL 2240--SAVE LINE BEING CONTACTED FOR MENTAL HEALTH SCREEN. 2300--MENTAL HEALTH WILL NOT DO SCREEN UNTIL ETOH IS LESS THAN 80 0045--REPEAT ETOH 67. MENTAL HEALTH NOW BEING CONTACTED FOR SCREEN. PT IS SLEEPING SOUNDLY, EASILY AWAKENS. PT IS CALM AND COOPERATIVE. 0230--MENTAL HEALTH SCREEN IN PROGRESS. 0600--CARE TURNED OVER TO DR. BUSTILLOS. PLACEMENT TO MENTAL HEALTH FACILITY IS PENDING AT THIS TIME. OTHER THAN DURING SCREENING PROCESS, PT HAS SLEPT THROUGHOUT THE NIGHT. (GRETA GARCIA DO) Progress Note #1: Time: 13:16 Progress Note #2: Time: 13:16 Progress Note After speaking to Dr Meredith the patient became agitated and is requesting to leave. I spoke with him about us being close to having placement for him, just waiting on requested TSH for placement. He states understanding. He tells me he was "just drunk last night." He states he is not suicidal in any way and is essentially demanding to leave at this time. He is alert, oriented and has capacity make his own medical decisions at this time. He is voluntary and not on a psychiatric hold. He leaves AGAINST MEDICAL ADVICE. I did advise that he could return to care at any time for further evaluation should he change his mind. He states understanding. He is not acutely suicidal and adamantly denies any suicidal thoughts at this time (ARNOLD BUSTILLOS DO) Initial ECG Impression Date: Jun 19, 2023 Initial ECG Impression Time: 22:02 Initial ECG Rate: 89 Initial ECG Rhythm: Normal Sinus Initial ECG Intervals: Normal Initial ECG Impression: Normal Initial ECG Comparisson: No Previous ECG Available Comment INTERPRETED BY ME (GRETA GARCIA DO) Departure Impression Primary Impression: Passive suicidal ideations Additional Impression: Homelessness Disposition: 07 AGAINST MEDICAL ADVICE Condition: Stable Departure-Patient Inst. Referrals: NO,LOCAL PHYSICIAN (PCP/Family) Primary Care Physician GRETA GARCIA DO Jun 19, 2023 22:01 ARNOLD BUSTILLOS DO Jun 20, 2023 13:16
[2023-06-20] MEDS ORDERED: ONDANSETRON 4 MG (ZOFRAN) ORAL DISSOLVE TAB PO STA (13:04)
[2023-06-20] MEDS ORDERED: hydrOXYzine 25 MG CAPSULE PO ONE (13:15)
[2023-06-20 13:38] VITALS: BP 126/68
== END 2023-06-20 13:38 | disposition left against medical advice (07) ==
LOC: EDUNIT# 21:49 → ER 21:50
DX: R45.851 Suicidal ideations (principal); R45.1 Restlessness and agitation; F17.210 Nicotine dependence, cigarettes, uncomplicated; G40.909 Epilepsy, unspecified, not intractable, without status epilepticus; I10 Essential (primary) hypertension; Z59.00 Homelessness unspecified; Z79.899 Other long term (current) drug therapy; Z20.822 Contact with and (suspected) exposure to COVID-19
CPT/HCPCS: 84443; 87636; 93005; 99284; G0480; 36415; 80320